=== PATIENT | male | born 1945 | race Caucasian/White ===

== ENCOUNTER → 2018-01-28 | Outpatient (CLI) | payer MEDICARE ==
[~2018-01-28] MED LIST: ADVAIR 250/501 EA INH; ALBUTEROL2.5 MG/0.5 INH; ASA; ASPIRIN81 MG PO; ATROVENT I0.5 MG/2.5 INH; ATROVENT NASAL15 ML NAS; CELEBREX200 MG PO; CIPRO500 MG PO; CYMBALTA60 MG PO; ECOTRIN81 MG PO; FLEXERIL10 MG PO; FLOMAX0.4 MG PO; HYDROCODONE BIT1 T11 PO; KOMBIGLYZE XR 11 TER PO; LIPITOR10 MG PO; LIPITOR20 MG PO; METHOCARBAMOL750 M1 PO; MOBIC15 MG PO; NAPROSYN500 MG PO; NATURE'S BLEND F1 MG PO; NEURONTIN600 MG PO; NEURONTIN800 MG PO; NIASPAN500 MG PO; ORENCIA CL125 MG/1 M SQ; PERCOCET 325 MG1 TA2 PO; PERCOCET 325 MG1 TA3 PO; PERCOCET 325 MG1 TA5 PO; PRAZOSIN HCL1 MG PO; PROPANOLOL PO; PROZAC10 MG PO; REQUIP1 MG PO; REQUIP4 MG PO; ROBAXIN750 MG PO; ROPINIROLE HYDRO2 M1 PO; SPIRIVA -- 3018 MCG INH; TRAZODONE100 MG PO; VENLAFAXINE37.5 M1 PO; VICODIN 5/500 505 MG PO; VITAMIN D50000 I1 PO; ZESTRIL10 MG PO; ZETIA10 MG PO; ZYRTEC-D 5 MG-11 TER PO; [UNRECOGNIZED DRUG - OTHER]; [UNRECOGNIZED DRUG - REMARK]
[2018-01-28 11:05] LABS: CHOLESTEROL 162 mg/dL (<200); HDL CHOLESTEROL 36 mg/dl (40-60); LDL CHOLESTEROL 103 mg/dL (9-159); TRIGLYCERIDES 116 mg/dl (<150); VLDL CHOLESTEROL 23 mg/dL (6-40)
== END | disposition home or self-care (01) ==
LOC: LAB 10:11
PROVIDERS: Internal Medicine
DX: E11.9 Type 2 diabetes mellitus without complications (principal)

== ENCOUNTER 2018-03-26 15:26 | Inpatient (IN) | payer MEDICARE ==
[~2018-03-26] VITALS: Ht 162.6 cm; Wt 73.5 kg
[2018-03-26 15:30] VITALS: BP 140/104
[2018-03-26 16:25] LABS: BASO % 0.7 % (0.0-1.0); EOS # 0.1 10*3/uL (0.0-0.4); EOS % 2.1 % (1.0-4.0); HEMATOCRIT 41.6 % (42.0-52.0); HEMOGLOBIN 14.3 g/dl (14.0-18.0); LYMPH # 1.5 10*3/uL (1.3-4.4); LYMPH % 26.9 % (27.0-41.0); MEAN CELL VOLUME 92.2 fl (80.0-94.0); MEAN CORPUSCULAR HGB 31.7 pg (27.0-31.0); MEAN CORPUSCULAR HGB CONC 34.4 g/dl (33.0-37.0); MONO # 0.3 10*3/uL (0.1-1.0); MONO % 5.3 % (3.0-9.0); NEUT # 3.6 10*3/uL (2.3-7.9); NEUT % 64.8 % (47.0-73.0); PLATELET COUNT AUTOMATED 217 10*3/uL (130-400); RED BLOOD COUNT 4.51 10*6/uL (4.50-5.90); WHITE BLOOD COUNT 5.6 10*3/uL (4.8-10.8)
[2018-03-26 16:43] LABS: ALBUMIN 4.1 gm/dl (3.1-4.5); ALKALINE PHOSPHATASE 55 U/L (45-117); BUN 12 mg/dl (7-24); CHLORIDE 102 mmol/L (98-107); CREATININE 1.14 mg/dL (0.70-1.30); POTASSIUM 4.5 mmol/L (3.5-5.1); SGOT/AST 10 IU/L (3-35); SGPT/ALT 14 U/L (12-78); SODIUM 136 mmol/L (136-145); TOTAL PROTEIN 7.1 gm/dL (6.4-8.2)
[2018-03-26 16:48] LABS: BILIRUBIN NEGATIVE (NEGATIVE); BLOOD NEGATIVE (NEGATIVE); CLARITY CLEAR (CLEAR); COLOR YELLOW (YELLOW); GLUCOSE 1+ (NEGATIVE); KETONE NEGATIVE (NEGATIVE); LEUKO ESTERASE NEGATIVE (NEGATIVE); NITRITE NEGATIVE (NEGATIVE); PH 5.5 (5.0-9.0); SPECIFIC GRAVITY <= 1.005 (1.005-1.030); UROBILINOGEN 0.2 E.U./dl (0.2-1.0)
[2018-03-26 16:49] LABS: ETHYL ALCOHOL < 3.0 mg/dl (<3)
[2018-03-26 16:51] LABS: TROPONIN I < 0.015 ng/ml (<0.045)
[2018-03-26 16:54] LABS: RBC 0-2 rbc/hpf (0-2); WBC 0-2 wbc/hpf (0-5)
[2018-03-26 16:58] LABS: URINE AMPHETAMINES < 1000 (1000ng/ml); URINE BARBITURATES < 200 (200ng/ml); URINE BENZODIAZEPINES < 200 (200ng/ml); URINE CANNABINOIDS (THC) < 50 (50ng/ml); URINE COCAINE < 300 (300ng/ml); URINE METHADONE < 300 (300ng/ml); URINE OPIATES < 300 (300ng/ml)
[2018-03-26 16:59] LABS: URINE PHENCYCLIDINE < 25 (25ng/ml)
[2018-03-26 18:10] VITALS: BP 148/80
[2018-03-26] MEDS ORDERED: METFORMIN750 MG PO (19:36)
[2018-03-26 20:00] VITALS: BP 127/54
[2018-03-26] MEDS ORDERED: ENBREL50 MG/1 M1 SQ (21:35)
[2018-03-26] MEDS ORDERED: PROPRANOLOL HCL10 MG PO (21:36)
[2018-03-26] MEDS ORDERED: METHOTREXATE2.5 M1 PO (21:37)
[2018-03-26] MEDS ORDERED: FISH OIL 1,0001 EAC5 PO (21:39)
[2018-03-26] MEDS ORDERED: NARCAN4 MG NAS (21:42)
[2018-03-26] MEDS ORDERED: BUPROPION HCL100 M2 PO (21:44)
[2018-03-26] MEDS ORDERED: ROPINIROLE HYDRO1 MG PO (21:49)
[2018-03-27] VITALS: BP 110/46
[2018-03-27 06:38] LABS: BASO # 0.1 10*3/uL (0.0-0.1); BASO % 0.9 % (0.0-1.0); EOS # 0.2 10*3/uL (0.0-0.4); EOS % 2.6 % (1.0-4.0); HEMATOCRIT 38.8 % (42.0-52.0); HEMOGLOBIN 13.2 g/dl (14.0-18.0); LYMPH # 3.1 10*3/uL (1.3-4.4); LYMPH % 44.4 % (27.0-41.0); MEAN CELL VOLUME 93.9 fl (80.0-94.0); MEAN PLATELET VOLUME 10.2 fl (9.6-12.3); MONO # 0.6 10*3/uL (0.1-1.0); MONO % 8.2 % (3.0-9.0); NEUT % 43.6 % (47.0-73.0); PLATELET COUNT AUTOMATED 197 10*3/uL (130-400); RED BLOOD COUNT 4.13 10*6/uL (4.50-5.90); RED CELL DISTRI WIDTH 13.1 % (0-14.5); WHITE BLOOD COUNT 6.9 10*3/uL (4.8-10.8)
[2018-03-27 07:05] LABS: BUN 10 mg/dl (7-24); CHLORIDE 110 mmol/L (98-107); CHOLESTEROL 129 mg/dL (<200); CREATININE 1.09 mg/dL (0.70-1.30); HDL CHOLESTEROL 34 mg/dl (40-60); LDL CHOLESTEROL 75 mg/dL (9-159); PHOSPHOROUS 3.5 mg/dL (2.5-4.9); POTASSIUM 4.5 mmol/L (3.5-5.1); SODIUM 143 mmol/L (136-145); TRIGLYCERIDES 100 mg/dl (<150); VLDL CHOLESTEROL 20 mg/dL (6-40)
[2018-03-27 07:12] LABS: FREE T4 0.98 ng/dl (0.76-1.46)
[2018-03-27 07:58] LABS: VITAMIN D, 25-HYDROXY 21.1 ng/mL (30-100)
[2018-03-27 08:00] VITALS: BP 140/60
[2018-03-27 12:00] VITALS: BP 158/84
[2018-03-27 16:00] VITALS: BP 152/73
[2018-03-27 20:00] VITALS: BP 154/69
[2018-03-28] VITALS: BP 130/71
[2018-03-28] MEDS ORDERED: MECLIZINE HCL25 M2 PO (13:11)
[2018-03-28] MEDS ORDERED: ATORVASTATIN CA40 M1 PO (13:11)
[2018-03-28] MEDS ORDERED: ASPIRIN CHEWABL81 M1 PO (13:11)
[2018-03-28] MEDS ORDERED: CLOPIDOGREL75 MG PO (13:11)
[2018-03-28] MEDS ORDERED: VITAMIN D31000 UNI1 PO (13:12)
== END 2018-03-28 14:34 | disposition home or self-care (01) | DRG 66 ==
LOC: ED 15:26 → 5E 17:28 → EDHOLD 17:28 → 5E 18:00
PROVIDERS: Internal Medicine; Student in an Organized Health Care Education/Training Program
DX: I63.9 Cerebral infarction, unspecified (principal); H55.00 Unspecified nystagmus; I25.10 Atherosclerotic heart disease of native coronary artery without angina pectoris; J44.9 Chronic obstructive pulmonary disease, unspecified; E11.69 Type 2 diabetes mellitus with other specified complication; M79.7 Fibromyalgia; E78.5 Hyperlipidemia, unspecified; I10 Essential (primary) hypertension; M19.90 Unspecified osteoarthritis, unspecified site; M81.0 Age-related osteoporosis without current pathological fracture; F43.10 Post-traumatic stress disorder, unspecified; M06.9 Rheumatoid arthritis, unspecified; R00.1 Bradycardia, unspecified; D72.810 Lymphocytopenia; E11.65 Type 2 diabetes mellitus with hyperglycemia; E55.9 Vitamin D deficiency, unspecified; H91.91 Unspecified hearing loss, right ear; R81 Glycosuria; R06.2 Wheezing; Z88.8 Allergy status to other drugs, medicaments and biological substances; Z91.011 Allergy to milk products; Z91.018 Allergy to other foods; Z79.899 Other long term (current) drug therapy; Z79.82 Long term (current) use of aspirin; Z90.49 Acquired absence of other specified parts of digestive tract; Z95.5 Presence of coronary angioplasty implant and graft; Z98.42 Cataract extraction status, left eye; Z98.41 Cataract extraction status, right eye; Z82.49 Family history of ischemic heart disease and other diseases of the circulatory system; Z83.3 Family history of diabetes mellitus; Z83.6 Family history of other diseases of the respiratory system; Z90.89 Acquired absence of other organs; Z72.0 Tobacco use; Z82.3 Family history of stroke; Z71.6 Tobacco abuse counseling

== ENCOUNTER → 2018-10-14 | Outpatient (CLI) | payer MEDICARE ==
[~2018-10-14] MED LIST changes: +ASPIRIN CHEWABL81 M1 PO; +ATORVASTATIN CA40 M1 PO; +BUPROPION HCL100 M2 PO; +CLOPIDOGREL75 MG PO; +ENBREL50 MG/1 M1 SQ; +FISH OIL 1,0001 EAC5 PO; +MECLIZINE HCL25 M2 PO; +METFORMIN750 MG PO; +METHOTREXATE2.5 M1 PO; +NARCAN4 MG NAS; +PROPRANOLOL HCL10 MG PO; +ROPINIROLE HYDRO1 MG PO; +VITAMIN D31000 UNI1 PO
[2018-10-14 09:22] LABS: CREATININE 1.19 mg/dL (0.70-1.30)
== END | disposition home or self-care (01) ==
LOC: LAB 08:31 → CT 08:31
PROVIDERS: Radiology Diagnostic Radiology
DX: H90.41 Sensorineural hearing loss, unilateral, right ear, with unrestricted hearing on the contralateral side (principal)

== ENCOUNTER → 2018-11-04 | Outpatient (CLI) | payer OTHER | END | disposition home or self-care (01) | LOC: US 07:08 | DX: Z13.6 Encounter for screening for cardiovascular disorders (principal); I10 Essential (primary) hypertension; Z72.0 Tobacco use ==

== ENCOUNTER → 2021-07-12 | Outpatient (CLI) | payer MEDICARE | END | disposition home or self-care (01) | LOC: COVID19 15:30 | PROVIDERS: ATTEND Internal Medicine | DX: Z20.822 Contact with and (suspected) exposure to COVID-19 (principal) ==

== ENCOUNTER → 2022-01-17 | Outpatient (CLI) | payer OTHER ==
[~2022-01-17] MED LIST changes: +BACLOFEN5 MG PO; +CARBIDOPA-LEVO1 EAC5 PO; +IRON325 M1 PO; +NORVASC5 MG PO
== END | disposition home or self-care (01) ==
LOC: CARD 12-20 01:17
PROVIDERS: ATTEND Internal Medicine
DX: R94.31 Abnormal electrocardiogram [ECG] [EKG] (principal); I25.9 Chronic ischemic heart disease, unspecified; I49.3 Ventricular premature depolarization

== ENCOUNTER 2022-03-23 15:05 | Inpatient (IN) | payer MEDICARE ==
[2022-03-23] VITALS (7 sets, daily range): BP systolic 132–169; BP diastolic 57–81
[~2022-03-23] VITALS: Ht 144.8 cm; Wt 56.7 kg
[~2022-03-23 15:05] MED LIST changes: +CEPHALEXIN500 M1 PO
[2022-03-23 16:06] LABS: BASO # 0.1 10*3/uL (0.0-0.1); EOS # 0.1 10*3/uL (0.0-0.4); EOS % 1.9 % (1.0-4.0); HEMATOCRIT 38.3 % (42.0-52.0); LYMPH # 1.5 10*3/uL (1.3-4.4); LYMPH % 26.1 % (27.0-41.0); MEAN CORPUSCULAR HGB 34.8 pg (27.0-31.0); MEAN CORPUSCULAR HGB CONC 35.5 g/dl (33.0-37.0); MEAN PLATELET VOLUME 9.7 fl (9.6-12.3); MONO # 0.7 10*3/uL (0.1-1.0); MONO % 11.8 % (3.0-9.0); NEUT # 3.4 10*3/uL (2.3-7.9); PLATELET COUNT AUTOMATED 170 10*3/uL (130-400); RED BLOOD COUNT 3.91 10*6/uL (4.50-5.90); RED CELL DISTRI WIDTH 12.7 % (0-14.5); WHITE BLOOD COUNT 5.8 10*3/uL (4.8-10.8)
[2022-03-23 16:37] LABS: BUN 22 mg/dl (7-24); CHLORIDE 107 mmol/L (98-107); CREATININE 0.94 mg/dL (0.70-1.30); POTASSIUM 4.2 mmol/L (3.5-5.1); SODIUM 138 mmol/L (136-145)
[2022-03-23] MEDS ORDERED: CARVEDILOL6.25 MG PO (16:51)
[2022-03-23] MEDS ORDERED: Percocet 325 MG1 TAB PO (16:52)
[2022-03-23] MEDS ORDERED: LISINOPRIL20 MG PO (16:52)
[2022-03-23] MEDS ORDERED: LOMOTIL 2.5-0.1 EACH PO (16:53)
[2022-03-23] MEDS ORDERED: BUSPIRONE HCL10 MG PO (16:57)
[2022-03-24] VITALS: BP 122/50
[2022-03-24 06:39] LABS: BASO % 0.8 % (0.0-1.0); EOS # 0.2 10*3/uL (0.0-0.4); EOS % 3.2 % (1.0-4.0); HEMATOCRIT 34.5 % (42.0-52.0); LYMPH # 1.5 10*3/uL (1.3-4.4); LYMPH % 32.3 % (27.0-41.0); MEAN CELL VOLUME 98.9 fl (80.0-94.0); MEAN CORPUSCULAR HGB 34.7 pg (27.0-31.0); MEAN CORPUSCULAR HGB CONC 35.1 g/dl (33.0-37.0); MEAN PLATELET VOLUME 10.3 fl (9.6-12.3); MONO # 0.7 10*3/uL (0.1-1.0); MONO % 14.8 % (3.0-9.0); NEUT # 2.3 10*3/uL (2.3-7.9); NEUT % 48.9 % (47.0-73.0); PLATELET COUNT AUTOMATED 148 10*3/uL (130-400); RED BLOOD COUNT 3.49 10*6/uL (4.50-5.90); RED CELL DISTRI WIDTH 12.7 % (0-14.5); WHITE BLOOD COUNT 4.7 10*3/uL (4.8-10.8)
[2022-03-24 07:22] LABS: BUN 16 mg/dl (7-24); CHLORIDE 109 mmol/L (98-107); CREATININE 0.85 mg/dL (0.70-1.30); POTASSIUM 3.9 mmol/L (3.5-5.1); SODIUM 139 mmol/L (136-145)
[2022-03-24 08:00] VITALS: BP 155/74
[2022-03-24] MEDS ORDERED: METFORMIN HYDR500 MG PO (09:52)
[2022-03-24] MEDS ORDERED: PLAQUENIL200 MG PO (10:35)
[2022-03-24 12:00] VITALS: BP 151/50
[2022-03-24] MEDS ORDERED: VITAMIN B-121000 MC2 PO (12:39)
[2022-03-24 16:00] VITALS: BP 154/52
[2022-03-24 20:00] VITALS: BP 161/57
[2022-03-25] VITALS: BP 147/73
[2022-03-25 06:08] LABS: BUN 14 mg/dl (7-24); CHLORIDE 109 mmol/L (98-107); CREATININE 0.87 mg/dL (0.70-1.30); POTASSIUM 4.1 mmol/L (3.5-5.1); SODIUM 140 mmol/L (136-145)
[2022-03-25 06:11] LABS: BASO # 0.1 10*3/uL (0.0-0.1); EOS # 0.2 10*3/uL (0.0-0.4); EOS % 3.6 % (1.0-4.0); HEMATOCRIT 38.3 % (42.0-52.0); LYMPH # 1.7 10*3/uL (1.3-4.4); LYMPH % 34.6 % (27.0-41.0); MEAN CELL VOLUME 97.5 fl (80.0-94.0); MEAN CORPUSCULAR HGB 35.1 pg (27.0-31.0); MEAN PLATELET VOLUME 10.3 fl (9.6-12.3); MONO # 0.7 10*3/uL (0.1-1.0); MONO % 13.3 % (3.0-9.0); NEUT # 2.4 10*3/uL (2.3-7.9); NEUT % 47.3 % (47.0-73.0); PLATELET COUNT AUTOMATED 158 10*3/uL (130-400); RED BLOOD COUNT 3.93 10*6/uL (4.50-5.90); RED CELL DISTRI WIDTH 12.5 % (0-14.5)
[2022-03-25 08:00] VITALS: BP 155/67
[2022-03-25 12:00] VITALS: BP 142/75
[2022-03-25] MEDS ORDERED: DALVANCE500 MG IV (14:12)
[2022-03-25 16:00] VITALS: BP 148/58
[2022-03-25 20:00] VITALS: BP 147/70
[2022-03-26] VITALS: BP 155/66
[2022-03-26 08:00] VITALS: BP 150/99
[2022-03-26 12:00] VITALS: BP 147/57
[2022-03-26 13:24] VITALS: BP 134/51
[2022-03-26 16:00] VITALS: BP 140/66
[2022-03-26 20:00] VITALS: BP 164/74
[2022-03-27] VITALS: BP 143/76
[2022-03-27 08:00] VITALS: BP 161/91
[2022-03-27 12:00] VITALS: BP 143/70
== END 2022-03-27 16:17 | disposition home or self-care (01) | DRG 629 ==
LOC: 4E 15:05
PROVIDERS: Orthopaedic Surgery; ADMIT Internal Medicine; ATTEND Internal Medicine
PROC: 0PBS0ZZ Excision of Left Thumb Phalanx, Open Approach (ICD-10-PCS; principal; 2022-03-23)
DX: E11.69 Type 2 diabetes mellitus with other specified complication (principal); L02.512 Cutaneous abscess of left hand; M86.8X4 Other osteomyelitis, hand; F43.10 Post-traumatic stress disorder, unspecified; I10 Essential (primary) hypertension; E78.5 Hyperlipidemia, unspecified; I25.10 Atherosclerotic heart disease of native coronary artery without angina pectoris; M81.0 Age-related osteoporosis without current pathological fracture; J44.9 Chronic obstructive pulmonary disease, unspecified; E55.9 Vitamin D deficiency, unspecified; M79.7 Fibromyalgia; Z88.8 Allergy status to other drugs, medicaments and biological substances; Z88.1 Allergy status to other antibiotic agents; Z91.011 Allergy to milk products; Z71.6 Tobacco abuse counseling

== ENCOUNTER → 2022-05-02 | Outpatient (CLI) | payer MEDICARE ==
[~2022-05-02] MED LIST changes: +BUSPIRONE HCL10 MG PO; +CARVEDILOL6.25 MG PO; +DALVANCE500 MG IV; +LISINOPRIL20 MG PO; +LOMOTIL 2.5-0.1 EACH PO; +METFORMIN HYDR500 MG PO; +PLAQUENIL200 MG PO; +Percocet 325 MG1 TAB PO; +VITAMIN B-121000 MC2 PO
== END | disposition home or self-care (01) ==
LOC: ORTHO 00:56
PROVIDERS: ATTEND Orthopaedic Surgery
DX: M19.042 Primary osteoarthritis, left hand (principal); M85.842 Other specified disorders of bone density and structure, left hand

== ENCOUNTER 2022-07-11 09:48 | Emergency (ER) | payer MEDICARE ==
[~2022-07-11] VITALS: Wt 56.7 kg
[~2022-07-11 09:48] MED LIST changes: +B12 ACTIVE1000 MCG PO; +CIPROFLOXACIN500 M4 PO; +FEROSUL325 MG PO
[2022-07-11 11:01] LABS: BASO % 0.4 % (0.0-1.0); EOS # 0.1 10*3/uL (0.0-0.4); EOS % 0.5 % (1.0-4.0); HEMATOCRIT 32.4 % (42.0-52.0); LYMPH # 1.3 10*3/uL (1.3-4.4); LYMPH % 11.9 % (27.0-41.0); MEAN CELL VOLUME 95.9 fl (80.0-94.0); MEAN CORPUSCULAR HGB 31.4 pg (27.0-31.0); MEAN CORPUSCULAR HGB CONC 32.7 g/dl (33.0-37.0); MEAN PLATELET VOLUME 9.7 fl (9.6-12.3); MONO # 0.6 10*3/uL (0.1-1.0); MONO % 5.8 % (3.0-9.0); NEUT # 8.9 10*3/uL (2.3-7.9); PLATELET COUNT AUTOMATED 276 10*3/uL (130-400); RED BLOOD COUNT 3.38 10*6/uL (4.50-5.90); RED CELL DISTRI WIDTH 13.7 % (0-14.5)
[2022-07-11 11:19] LABS: ALKALINE PHOSPHATASE 64 U/L (46-116); BUN 22 mg/dl (9-23); CHLORIDE 100 mmol/L (98-107); LIPASE 33 U/L (12-53); POTASSIUM 4.9 mmol/L (3.4-5.1); SGPT/ALT 20 U/L (10-49); TOTAL PROTEIN 6.6 gm/dL (6.0-8.0)
[2022-07-11 11:23] VITALS: BP 130/62
[2022-07-11] MEDS ORDERED: Ondansetron4 MG PO (11:48)
[2022-07-11 13:24] LABS: BILIRUBIN Negative (Negative); BLOOD Negative (Negative); CLARITY Clear (Clear); COLOR Yellow (Yellow); GLUCOSE Trace (Negative); KETONE Negative (Negative); LEUKO ESTERASE 2+ (Negative); NITRITE Negative (Negative); SPECIFIC GRAVITY 1.015 (1.001-1.030); UROBILINOGEN 0.2 E.U./dl (0.0-1.0)
[2022-07-11 13:36] LABS: BACTERIA 1+; WBC TNTC wbc/hpf (0-5)
[2022-07-11] MEDS ORDERED: CEPHALEXIN500 M1 PO (13:38)
== END 2022-07-11 13:45 | disposition home or self-care (01) ==
LOC: ED 09:48
PROVIDERS: Student in an Organized Health Care Education/Training Program
DX: R11.2 Nausea with vomiting, unspecified (principal); R30.0 Dysuria; Z88.5 Allergy status to narcotic agent; Z88.8 Allergy status to other drugs, medicaments and biological substances; Z98.890 Other specified postprocedural states; Z90.49 Acquired absence of other specified parts of digestive tract; Z90.89 Acquired absence of other organs; Z98.49 Cataract extraction status, unspecified eye; Z87.891 Personal history of nicotine dependence

== ENCOUNTER → 2022-09-22 | Outpatient (CLI) | payer MEDICARE ==
[~2022-09-22] MED LIST changes: +Ondansetron4 MG PO
[2022-09-22 08:47] LABS: BASO # 0.1 10*3/uL (0.0-0.1); BASO % 0.7 % (0.0-1.0); EOS # 0.5 10*3/uL (0.0-0.4); EOS % 5.7 % (1.0-4.0); HEMATOCRIT 35.7 % (42.0-52.0); LYMPH # 2.2 10*3/uL (1.3-4.4); LYMPH % 25.6 % (27.0-41.0); MEAN CELL VOLUME 93.2 fl (80.0-94.0); MEAN CORPUSCULAR HGB 29.2 pg (27.0-31.0); MEAN CORPUSCULAR HGB CONC 31.4 g/dl (33.0-37.0); MEAN PLATELET VOLUME 9.5 fl (9.6-12.3); MONO # 0.9 10*3/uL (0.1-1.0); MONO % 10.7 % (3.0-9.0); NEUT # 4.8 10*3/uL (2.3-7.9); NEUT % 56.9 % (47.0-73.0); PLATELET COUNT AUTOMATED 264 10*3/uL (130-400); RED BLOOD COUNT 3.83 10*6/uL (4.50-5.90); RED CELL DISTRI WIDTH 14.6 % (0-14.5); WHITE BLOOD COUNT 8.5 10*3/uL (4.8-10.8)
[2022-09-22 09:15] LABS: ALKALINE PHOSPHATASE 69 U/L (46-116); BUN 13 mg/dl (9-23); CHLORIDE 107 mmol/L (98-107); CHOLESTEROL 94 mg/dL (<200); CPK 126 U/L (34-171); FREE T4 1.17 ng/dl (0.89-1.76); LDL CHOLESTEROL 39 mg/dL (9-159); POTASSIUM 4.5 mmol/L (3.4-5.1); SGPT/ALT 20 U/L (10-49); THYROID STIM HORMONE (HS) 1.242 uIU/ml (0.550-4.780); TOTAL PROTEIN 6.3 gm/dL (6.0-8.0); TRIGLYCERIDES 129 mg/dl (<150)
[2022-09-22 11:00] LABS: VITAMIN D, 25-HYDROXY 37.1 ng/mL (30-100)
== END | disposition home or self-care (01) ==
LOC: LAB 08:28
PROVIDERS: ATTEND Internal Medicine
DX: E55.9 Vitamin D deficiency, unspecified (principal); Z13.6 Encounter for screening for cardiovascular disorders; Z13.820 Encounter for screening for osteoporosis; Z13.0 Encounter for screening for diseases of the blood and blood-forming organs and certain disorders involving the immune mechanism; Z13.29 Encounter for screening for other suspected endocrine disorder; Z12.5 Encounter for screening for malignant neoplasm of prostate; Z13.1 Encounter for screening for diabetes mellitus; Z13.220 Encounter for screening for lipoid disorders; Z79.899 Other long term (current) drug therapy

== ENCOUNTER 2023-03-17 15:47 | Emergency (ER) | payer MEDICARE ==
[~2023-03-17] VITALS: Wt 56.0 kg
[~2023-03-17 15:47] MED LIST changes: +ARAVA20 MG PO; +CELECOXIB200 M1 PO; +DOXEPIN HCL10 MG PO; +DUTASTERIDE0.5 MG PO; +MEMANTINE HCL5 MG PO; +NEURONTIN300 MG PO; +OXYCODONE-ACET1 EAC3 PO; +RIVASTIGMINE TAR6 M1 PO; +ROPINIROLE HYDRO3 MG PO
[2023-03-17 15:55] VITALS: BP 178/81
[2023-03-17] MEDS ORDERED: VIBRAMYCIN100 MG PO (16:27)
== END 2023-03-17 16:34 | disposition home or self-care (01) ==
LOC: ED 15:47
DX: N39.0 Urinary tract infection, site not specified (principal); F17.200 Nicotine dependence, unspecified, uncomplicated; Z88.1 Allergy status to other antibiotic agents; Z91.048 Other nonmedicinal substance allergy status; Z79.899 Other long term (current) drug therapy; Z79.82 Long term (current) use of aspirin; Z79.2 Long term (current) use of antibiotics; Z98.890 Other specified postprocedural states; Z90.49 Acquired absence of other specified parts of digestive tract; Z90.89 Acquired absence of other organs